=== PATIENT | male | born 1995 | race Caucasian/White ===

== ENCOUNTER 2019-02-26 09:52 | Emergency (ER) | payer BC ==
[2019-02-26] MEDS ORDERED: HYDROCODONE/APAP 5/325 TAB PO ONE (10:00)
--- NOTE | 2019-02-26 10:00 | EDPHY ---
H & P Source: Patient, RN/MD Exam Limitations: No limitations Time Seen by Provider: 02/26/19 09:55 HPI/ROS: HPI: This is a 23-year-old male who presents with Chief Complaint: Right testicular pain Location: right testicular Quality: Pain Duration: Starting yesterday Signs and Symptoms: no fever, no nausea, no vomiting, no hematemesis, no blood in stool, no abdominal bloating, no diarrhea, no back pain, no urinary symptoms , no indigestion, no chest pain, no shortness of breath, no trauma Timing: Worse this morning Severity: 10 out 10 Context: Patient is a student at [employer] presents from [facility], presents with right testicular pain that started yesterday as a dull pressure-like sensation and then he woke up this morning with a being sharp and constant. Last ejaculation was yesterday afternoon. Denies being sexually active or concern for sexually transmitted infections. Uncircumcised and denies penile discharge, burning with urination, blood in his urine, fever, abdominal pain, nausea, vomiting. Modifying Factors: None Comment: ROS: A comprehensive 10 system review of systems is otherwise negative aside from elements mentioned in the history of present illness. MEDICAL/SURGICAL/SOCIAL HISTORY: Medical history: Generally healthy. Does not take any regular medications. Surgical history: Denies Social history: Student at [employer]. Family history noncontributory. CONSTITUTIONAL: Slightly anxious young adult white male, awake and alert, no obvious distress HEENT: Atraumatic and normocephalic, PERRL, EOMI. Nares patent; no rhinorrhea; no nasal mucosal edema. Tympanic membranes clear. Oropharynx clear, no exudate and moist pink mucosa. Airway patent. No lymphadenopathy. No meningismus. Cardiovascular: Normal S1/S2, regular rate, regular rhythm, without murmur rub or gallop. PULMONARY/CHEST: Symmetrical and nontender. Clear to auscultation bilaterally. Good air movement. No accessory muscle usage. ABDOMEN: Soft, nondistended, nontender, no rebound, no guarding, no peritoneal signs, no masses or organomegaly. No CVAT. Male : uncircumcised penis, bilateral descended testes, right greater than left testes is tender with palpation near the epididymis; no testicular swelling , no testicular masses, no penile discharge, no lesions, negative Prehn's sign. EXTREMITIES: 2/2 pulses, strength 5/5, no deformities, no clubbing, no cyanosis or edema. NEUROLOGICAL: no focal neuro deficits. GCS 15. SKIN: Warm and dry, no erythema. no rash. Good capillary refill. (Rosenda Murphy) Constitutional: Initial Vital Signs Temperature (C) 36.9 C 02/26/19 09:53 Heart Rate 70 02/26/19 09:53 Respiratory Rate 16 02/26/19 09:53 Blood Pressure 113/62 02/26/19 09:53 O2 Sat (%) 96 02/26/19 09:53 O2 Delivery Mode Room Air Allergies/Adverse Reactions: Sulfa (Sulfonamide Antibiotics) Allergy (Verified 02/26/19 09:53) Home Medications: Medication Instructions Recorded Doxycycline Hyclate 100 mg PO BID 10 Days #20 tab 02/26/19 oxyCODONE/APAP 5/325 [Percocet 1 - 2 tab PO Q4H PRN #10 tab 02/26/19 5/325 (*)] Medical Decision Making ED Course/Re-evaluation: Urinalysis, urine GC, testicular ultrasound ordered Given Grimstead x1 for pain control. 1020: Urinalysis is unremarkable. 1021: medical technologist microbiology at bedside. 1100: Called by radiologist, Dr. Jade who advised that ultrasound shows no testicular torsion with good flow to both testicles. Hyperemia in the right spermatic cord which could be related to of as I disc, without evidence epididymoorchitis treated with IM Rocephin 250 mg and doxycycline 100 mg twice a day for 10 days. Urology referral as needed. This patient was seen under the supervision of my secondary supervising physician. I evaluated and cared for this patient independently. (Rosenda Murphy) I did not see this patient while he was in the emergency department. However his care was discussed with the PA while the patient was in the department. I agree with treatment plan and management (Luis Tran) Differential Diagnosis: Differential diagnosis includes but is not limited to gonorrhea, chlamydia, urinary tract infection, epididymitis, orchitis, testicular torsion. (Rosenda Murphy) - Data Points Medications Given: Discontinued Medications Hydrocodone Bitart/Acetaminophen (Grimstead 5/325) 1 tab PO EDNOW ONE Stop: 02/26/19 10:01 Last Admin: 02/26/19 10:08 Dose: Not Given Ceftriaxone Sodium (Rocephin Im Syringe) 250 mg IM EDNOW ONE PRN Reason: Protocol Stop: 02/26/19 11:13 Last Admin: 02/26/19 11:50 Dose: 250 mg Doxycycline Hyclate (Doxycycline Hyclate) 100 mg PO EDNOW ONE PRN Reason: Protocol Stop: 02/26/19 11:13 Last Admin: 02/26/19 11:50 Dose: 100 mg Departure - Departure Disposition: Home, Routine, Self-Care Clinical Impression: Vasitis Condition: Good Instructions: Epididymo-Orchitis (ED), Testicle Pain (ED) Additional Instructions: Please refrain from any sexual intercourse until all antibiotics have been taking. Take all of the antibiotic. Do not skip a dose. Take Tylenol 650 mg every 4 hours and/or Ibuprofen 600 mg every 8 hours with food as needed for pain. Use Percocet every 6 hours as needed for severe/break through pain. Do not use Tylenol and Percocet concomitantly. Follow-up with Urology in 5-7 days if symptoms do not improve. Referrals: Noel Teague MD [Medical Doctor] - As per Instructions Stand Alone Forms: School Excuse Prescriptions: Doxycycline Hyclate 100 mg PO BID 10 Days #20 tab oxyCODONE/APAP 5/325 [Percocet 5/325 (*)] 1 - 2 tab PO Q4H PRN #10 tab PRN Reason: Pain, Severe
[2019-02-26] MEDS ORDERED: DOXYCYCLINE HYCLATE 100 MG CAP/TAB PO ONE (11:12)
[2019-02-26 11:55] VITALS: BP 142/86
[2019-02-27 11:11] LABS: GC AMPLIFICATION GENPROBE NEGATIVE (NEGATIVE)
== END 2019-02-26 11:54 | disposition home or self-care (01) ==
DX: N49.1 Inflammatory disorders of spermatic cord, tunica vaginalis and vas deferens (principal)
CPT/HCPCS: J0696